=== PATIENT | male | born 1995 | race Caucasian/White ===

== ENCOUNTER 2019-11-28 18:06 | Emergency (ER) | payer OTHER ==
[~2019-11-28] VITALS: Ht 185.4 cm; Wt 63.5 kg
[2019-11-28 18:15] VITALS: BP_SYST 116
[2019-11-28] MEDS ORDERED: LIDOCAINE 1% 10 MG/ML, 20 ML MDV INJ ONE (18:30)
[2019-11-28] MEDS ORDERED: DIPH-TET-PERTUS Vaccine 0.5 ML VIAL (ADACEL) I.M. ONE (18:30)
[2019-11-28 19:07] VITALS: BP_SYST 116
[2019-11-28] MEDS ORDERED: BACITRACIN 1 GM OINT TP ONE (19:16)
== END 2019-11-28 19:07 | disposition home or self-care (01) ==
LOC: SED 18:06
DX: S61.211A Laceration without foreign body of left index finger without damage to nail, initial encounter (principal); W26.8XXA Contact with other sharp object(s), not elsewhere classified, initial encounter; Y93.89 Activity, other specified; Y92.89 Other specified places as the place of occurrence of the external cause; Y99.8 Other external cause status
CPT/HCPCS: 12001; 90471; 90715; 99283; J2001

== ENCOUNTER 2020-04-22 03:23 | Emergency (ER) | payer OTHER, BC ==
--- NOTE | 2020-04-22 04:10 | NUR ---
Pt in waiting room chair. Alert and oriented. No acute distress noted.
--- NOTE | 2020-04-22 04:38 | NUR ---
ER Dr. vera at bedside examining patient.
[2020-04-22 04:47] VITALS: BP_SYST 130
--- NOTE | 2020-04-22 04:53 | NUR ---
Pt. alert and oriented and no distress noted. Pt Sitting up in chair.
[2020-04-22] MEDS: KETOROLAC TROMETHAMINE 60 MG/2 ML VIAL IM ONE (04:55)
--- NOTE | 2020-04-22 04:55 | NUR ---
pt to Xray. Ambulates
--- NOTE | 2020-04-22 05:47 | NUR ---
Pt in chair, alert and oriented. Denies sob. Medicated for pain with helpful results.
--- NOTE | 2020-04-22 06:55 | NUR ---
wrist splint applied to Right wrist. + pulse noted. Capillary refill <3 seconds. Patient has ability to move non-splinted digits. Has sensation present to affected site. Skin color within normal limits. Applied for pain management control.
[2020-04-22 07:19] VITALS: BP_SYST 128
--- NOTE | 2020-04-22 07:20 | NUR ---
Patient given written and verbal discharge instructions and verbalizes understanding. ER MD discussed with patient the results and treatment provided. Patient in stable condition. ID arm band removed. Rx of norco and ibuprophen given. Patient educated on pain management and to follow up with PMD. Pain Scale 3/10. Opportunity for questions provided and answered. Medication side effect fact sheet provided.
== END 2020-04-22 07:19 | disposition home or self-care (01) ==
LOC: SED 03:23
DX: S32.010A Wedge compression fracture of first lumbar vertebra, initial encounter for closed fracture (principal); S60.221A Contusion of right hand, initial encounter; V49.9XXA Car occupant (driver) (passenger) injured in unspecified traffic accident, initial encounter; Y93.89 Activity, other specified; Y92.413 State road as the place of occurrence of the external cause; Y99.8 Other external cause status
CPT/HCPCS: 29125; 72125; 72131; 73130; 76376; 96372; 99285; J1885

== ENCOUNTER 2020-05-02 13:55 | Emergency (ER) | payer BC, SELFPAY ==
[~2020-05-02] VITALS: Ht 182.9 cm; Wt 68.0 kg
[2020-05-02 14:22] VITALS: BP_SYST 104
[2020-05-02 15:08] VITALS: BP_SYST 104
== END 2020-05-02 15:08 | disposition home or self-care (01) ==
LOC: SED 13:55
DX: J02.8 Acute pharyngitis due to other specified organisms (principal); B97.89 Other viral agents as the cause of diseases classified elsewhere; F17.210 Nicotine dependence, cigarettes, uncomplicated; Z88.2 Allergy status to sulfonamides
CPT/HCPCS: 71045; 99283